=== PATIENT | male | born 1985 | race African-American/Black ===

== ENCOUNTER 2016-12-22 06:57 | Emergency (ER) | payer OTHER ==
[~2016-12-22] VITALS: Ht 185.4 cm; Wt 83.0 kg
== END 2016-12-22 08:25 | disposition home or self-care (01) ==
LOC: CED 06:57
DX: S01.81XA Laceration without foreign body of other part of head, initial encounter (principal); F17.200 Nicotine dependence, unspecified, uncomplicated; W22.8XXA Striking against or struck by other objects, initial encounter
CPT/HCPCS: 12013; 99283